=== PATIENT | female | born 1980 | race American Indian/Alaskan Native ===

== ENCOUNTER 2018-06-28 10:45 | Outpatient (CLI) | payer MEDICAID ==
--- NOTE | 2018-06-28 11:38 | XRay Report ---
LEFT KNEE RADIOGRAPHS INDICATION: Pain. COMPARISON: None similar. FINDINGS: AP and lateral left knee radiographs demonstrate intact bony articulation and appearance. Normal soft tissues without evidence of suprapatellar effusion. CONCLUSION: Normal left knee radiographs. Thank you for the opportunity to participate in this patient's care.
== END 2018-06-28 10:46 | disposition home or self-care (01) ==
LOC: XRAY 10:45
PROVIDERS: ATTEND Orthopaedic Surgery
DX: M25.562 Pain in left knee (principal)

== ENCOUNTER 2018-11-26 19:16 | Emergency (ER) | payer MEDICAID ==
--- NOTE | 2018-11-26 19:47 | Emergency Department Report ---
Blank Doc - Documentation Documentation: This is a 38-year-old female that presents with intermittent midsternum chest pain and worse when laying down. Denies any SOB. Denies any radiation of pain. Denies any other symptoms or complaints. PMH: HTN This initial assessment diagnostic orders/clinical plan/treatment(s) is/are subject to change based on patient's health status, clinical progression and re- assessment by fellow clinical providers in the ED. Further treatment and workup at subsequent clinical providers discretion. Patient/guardians urged not to elope from ED s their condition may be serious if not clinically assessed and managed. Initial orders include: 1-Patient sent to [facility] for further evaluation and treatment 2- Labs 3-EKG 4- CXR
[2018-11-26 20:03] LABS: Basophils # (Auto) 0.2 K/mm3 (0.0-0.1); Basophils % (Auto) 1.5 % (0.0-1.8); Eosinophils # (Auto) 0.1 K/mm3 (0.0-0.4); Eosinophils % (Auto) 0.9 % (0.0-4.3); Hematocrit 37.3 % (30.3-42.9); Hemoglobin 12.2 gm/dl (10.1-14.3); Lymphocytes # (Auto) 2.8 K/mm3 (1.2-5.4); Lymphocytes % (Auto) 24.8 % (13.4-35.0); Mean Corpuscular HGB Conc 33 % (30-34); Mean Corpuscular Volume 81 fl (79-97); Platelet Count 205 K/mm3 (140-440); Red Blood Count 4.63 M/mm3 (3.65-5.03)
[2018-11-26 20:33] LABS: BUN/Creatinine Ratio 16; Blood Urea Nitrogen 13 mg/dL (7-17); Calcium 9.6 mg/dL (8.4-10.2); Hemolysis Index 7
--- NOTE | 2018-11-26 21:51 | Emergency Department Report ---
Addendum entered and electronically signed by HAZEL WYATT PA 11/27/18 00:46: EKG dictated by attending physician shows sinus rhythm at [address] abnormalities. Original Note: ED Chest Pain HPI - General Chief Complaint: Chest Pain Stated Complaint: CHEST PAIN Time Seen by Provider: 11/26/18 19:45 Source: patient, family Mode of arrival: Ambulatory Limitations: No Limitations - History of Present Illness Initial Comments: This is a 38-year-old female here report that she is having left chest pain that feels like move in. But no radiation. She denies any cough or congestion. Denies any fever or chills. Denies any nausea or vomiting. Patient said she had pneumonia in the past. She denies any history of any heart problems, denies recent long distance travel or any convalescent period. Denies being on control. Her chest pain is localized to left chest. Pain is 3 out of 10 and sh shiva and worse with movement and no alleviating factor. She denies any shortness of breath. No medication taken prior to coming to the emergency room and she said this started a couple days ago. MD Complaint: chest pain Onset/Timin -: days(s) Onset: during rest Pain Location: left chest Pain Radiation: none Severity scale (0 -10): 3 Quality: sharp Consistency: constant Improves With: nothing Worsens With: movement Context: other (unknown) re: denies: nausea, vomting, diaphoresis, dyspnea, sense of impending doom Treatments Prior to Arrival: none Aspirin use within the Past 7 Days: (0) No - Related Data On Oral Contraceptives: No Previous Rx's Medication Instructions Recorded Last Taken Type Ibuprofen 400 mg PO QID 5 Days #20 tablet 08/26/18 Unknown Rx oxyCODONE /ACETAMINOPHEN [Percocet 1 tab PO Q6HR PRN #10 tablet 08/26/18 Unknown Rx 5/325] Ibuprofen [Motrin] 800 mg PO Q8HR PRN #12 tablet 11/27/18 Unknown Rx Allergies Allergy/AdvReac Type Severity Reaction Status Date / Time BAND AID Allergy Hives Uncoded 06/28/18 10:46 Heart Score - HEART Score History: Slightly suspicious EKG: Normal Age: < 45 Risk factors: 1-2 risk factors Troponin: < normal limit HEART Score: 1 - Critical Actions Critical Actions: 0-3 pts:0.9-1.7%risk of adverse cardiac event.Candidate for discharge ED Review of Systems ROS: Stated complaint: CHEST PAIN Other details as noted in HPI Constitutional: chills. denies: fever Eyes: denies: eye pain, eye discharge ENT: denies: throat pain, congestion Cardiovascular: chest pain. denies: palpitations, dyspnea on exertion, edema, syncope, paroxysmal nocturnal dyspnea Gastrointestinal: denies: abdominal pain, nausea, vomiting, diarrhea, constipation, hematemesis, hematochezia Genitourinary: denies: dysuria, hematuria Musculoskeletal: denies: back pain, joint swelling, arthralgia, myalgia Skin: denies: rash Neurological: denies: headache Psychiatric: denies: anxiety ED Past Medical Hx - Past Medical History Previous Medical History?: Yes Hx Hypertension: Yes Hx Asthma: Yes - Surgical History Past Surgical History?: Yes Hx Cholecystectomy: Yes - Family History Family history: hypertension - Social History Smoking Status: Current Every Day Smoker Substance Use Type: None - Medications Home Medications: Home Medications Medication Instructions Recorded Confirmed Last Taken Type Ibuprofen 400 mg PO QID 5 Days #20 tablet 08/26/18 Unknown Rx oxyCODONE /ACETAMINOPHEN [Percocet 1 tab PO Q6HR PRN #10 tablet 08/26/18 Unknown Rx 5/325] Ibuprofen [Motrin] 800 mg PO Q8HR PRN #12 tablet 11/27/18 Unknown Rx ED Physical Exam - General Limitations: No Limitations General appearance: alert, in no apparent distress - Head Head exam: Present: atraumatic, normocephalic, normal inspection - Eye Eye exam: Present: normal appearance, PERRL, EOMI Pupils: Present: normal accommodation - ENT ENT exam: Present: normal exam, normal orophraynx, mucous membranes moist, TM's normal bilaterally, normal external ear exam - Neck Neck exam: Present: normal inspection, full ROM. Absent: tenderness, lymphadenopathy - Respiratory Respiratory exam: Present: normal lung sounds bilaterally, chest wall tenderness (left chest wall.). Absent: respiratory distress, wheezes, rales, rhonchi, stridor, accessory muscle use, decreased breath sounds, prolonged expiratory - Cardiovascular Cardiovascular Exam: Present: regular rate, normal rhythm, normal heart sounds. Absent: systolic murmur, diastolic murmur - GI/Abdominal GI/Abdominal exam: Present: soft, normal bowel sounds. Absent: distended, tenderness, rigid, organomegaly, mass - Extremities Exam Extremities exam: Present: normal inspection, full ROM, normal capillary refill, other (No cce. + 2 pulses in all extremities, no neurovascular compromise). Absent: pedal edema, joint swelling, calf tenderness - Back Exam Back exam: Present: normal inspection, full ROM, other (ambulance without any difficulties). Absent: tenderness, CVA tenderness (R), CVA tenderness (L), mus rosemary spasm, paraspinal tenderness, vertebral tenderness, rash noted - Neurological Exam Neurological exam: Present: alert, oriented X3, normal gait, reflexes normal. Absent: motor sensory deficit - Psychiatric Psychiatric exam: Present: normal affect, normal mood - Skin Skin exam: Present: warm, dry, intact, normal color. Absent: rash ED Course Vital Signs 11/26/18 11/26/18 19:46 19:47 Temperature 98.4 F Pulse Rate 95 H Respiratory 14 18 Rate Blood Pressure 149/87 O2 Sat by Pulse 98 Oximetry - Reevaluation(s) Reevaluation #1: 11/27/18 00:35 Patient stable throughout ED course. She has no chest pain or any problems at present. Reevaluation #2: 11/27/18 00:43 Patient given Motrin prior to discharge it 100 mg to costochondritis. JOSELO score - Joselo Score Age > 65: (0) No Aspirin use within the Past 7 Days: (0) No 3 or more CAD Risk Factors: (0) No 2 or more Angina events in past 24 hrs: (0) No Known CAD with more than 50% Stenosis: (0) No Elevated Cardiac Markers: (0) No ST Deviation Greater than 0.5mm: (0) No JOSELO Score: 0 ED Medical Decision Making - Lab Data Result diagrams: 11/26/18 19:49 11/26/18 19:49 Lab Results 11/26/18 11/26/18 11/26/18 Range/Units 19:49 19:49 19:49 WBC 11.2 H (4.5-11.0) K/mm3 RBC 4.63 (3.65-5.03) M/mm3 Hgb 12.2 (10.1-14.3) gm/dl Hct 37.3 (30.3-42.9) % MCV 81 (79-97) fl MCH 27 L (28-32) pg MCHC 33 (30-34) % RDW 15.0 (13.2-15.2) % Plt Count 205 (140-440) K/mm3 Lymph % (Auto) 24.8 (13.4-35.0) % [place] % (Auto) 9.0 H (0.0-7.3) % Eos % (Auto) 0.9 (0.0-4.3) % Baso % (Auto) 1.5 (0.0-1.8) % Lymph # 2.8 (1.2-5.4) K/mm3 [place] # 1.0 H (0.0-0.8) K/mm3 Eos # 0.1 (0.0-0.4) K/mm3 Baso # 0.2 H (0.0-0.1) K/mm3 Seg Neutrophils % 63.8 (40.0-70.0) % Seg Neutrophils # 7.1 (1.8-7.7) K/mm3 D-Dimer (0-234) ng/mlDDU Sodium 137 (137-145) mmol/L Potassium 3.7 (3.6-5.0) mmol/L Chloride 101.5 (98-107) mmol/L Carbon Dioxide 21 L (22-30) mmol/L Anion Gap 18 mmol/L BUN 13 (7-17) mg/dL Creatinine 0.8 (0.7-1.2) mg/dL Estimated GFR > 60 ml/min BUN/Creatinine Ratio 16 % Glucose 95 (65-100) mg/dL Calcium 9.6 (8.4-10.2) mg/dL Troponin T < 0.010 (0.00-0.029) ng/mL HCG, Qual Negative (Negative) 11/26/18 11/26/18 Range/Units 22:05 22:44 WBC (4.5-11.0) K/mm3 RBC (3.65-5.03) M/mm3 Hgb (10.1-14.3) gm/dl Hct (30.3-42.9) % MCV (79-97) fl MCH (28-32) pg MCHC (30-34) % RDW (13.2-15.2) % Plt Count (140-440) K/mm3 Lymph % (Auto) (13.4-35.0) % [place] % (Auto) (0.0-7.3) % Eos % (Auto) (0.0-4.3) % Baso % (Auto) (0.0-1.8) % Lymph # (1.2-5.4) K/mm3 [place] # (0.0-0.8) K/mm3 Eos # (0.0-0.4) K/mm3 Baso # (0.0-0.1) K/mm3 Seg Neutrophils % (40.0-70.0) % Seg Neutrophils # (1.8-7.7) K/mm3 D-Dimer 239.42 H (0-234) ng/mlDDU Sodium (137-145) mmol/L Potassium (3.6-5.0) mmol/L Chloride (98-107) mmol/L Carbon Dioxide (22-30) mmol/L Anion Gap mmol/L BUN (7-17) mg/dL Creatinine (0.7-1.2) mg/dL Estimated GFR ml/min BUN/Creatinine Ratio % Glucose (65-100) mg/dL Calcium (8.4-10.2) mg/dL Troponin T < 0.010 (0.00-0.029) ng/mL HCG, Qual (Negative) - EKG Data -: EKG Interpreted by Me (attending physician) - Radiology Data Radiology results: report reviewed CT angiogram chest and chest x-ray 2 views dictated by radiologist and report reviewed by myself. See reports below Findings [facility] [address] [place] [address] XRay Report Signed Patient: DOMENIC GRUBBS MR#: [id number] : 1980 Acct:[id number] Age/Sex: 38 / F ADM Date: 11/26/18 Loc: ED Attending Dr: Ordering Physician: CHRISTY BERNSTEIN NP Date of Service: 11/26/18 Procedure(s): XR chest routine 2V Accession Number(s): [id number] cc: CHRISTY BERNSTEIN NP Fluoro Time In Minutes: FINAL REPORT EXAM: XR CHEST ROUTINE 2V HISTORY: Chest Pain TECHNIQUE: 2 views of the chest. PRIORS: None. FINDINGS: The cardiomediastinal silhouette appears normal. The lungs are clear. The bones and soft tissues are unremarkable. IMPRESSION: No evidence of acute cardiopulmonary disease Transcribed By: MLG Dictated By: ANDRES MEJÍA MD Electronically Authenticated By: ANDRES MEJÍA MD Signed Date/Time: 11/26/182203 DD/ 01 TD/TT: 11/26/182201 Findings [facility] [address] [id number] Cat Scan Report Signed Patient: DOMENIC GRUBBS MR#: [id number] : 1980 Acct:[id number] Age/Sex: 38 / F ADM Date: 11/26/18 Loc: ED Attending Dr: Ordering Physician: QASIM PERRIN Date of Service: 11/26/18 Procedure(s): CT angio chest Accession Number(s): [id number] cc: QASIM PERRIN FINAL REPORT PROCEDURE: CT ANGIO CHEST TECHNIQUE: Computerized axial tomographic angiography of the chest and pulmonary arteries was performed after the IV injection of iodinated nonionic contrast. The image data was postprocessed using maximum intensity projection (MIP) and 2-dimensional multiplanar reformatted (MPR) techniques. The examination is specifically tailored to the evaluation of the pulmonary arteries per clinical request. HISTORY: Short of breath 786.09, chest pain 786.50, left chest pain with elevated d-dimer COMPARISON: No prior studies are available for comparison. FINDINGS: Heart and pericardium: Normal. Thoracic aorta: There is no thoracic aortic aneurysm or dissection.. Pulmonary vasculature: Normal. No pulmonary emboli. Lymph nodes: No enlarged thoracic lymph nodes. Lungs: The lungs are clear and expanded. There are no infiltrates.. Pleural space: No effusion, thickening, or pneumothorax. Musculoskeletal structures: No significant abnormality. Upper abdominal structures: Images of the upper abdomen demonstrate a 12 millimeter enhancing lesion in the left lobe of the liver which could be an atypical hemangioma or adenoma.. IMPRESSION: There is no pulmonary embolism.. Transcribed By: CO Dictated By: DERECK BADILLO MD Electronically Authenticated By: DERECK BADILLO MD Signed Date/Time: 11/27/187 DD/ TD/TT: 11/27/185 - Medical Decision Making This is a 38-year-old female here reports she is having chest pain. Patient has a history of high blood pressure and she smokes. She had lab work done to include troponins 2 which are negative. EKG shows sinus rhythm at 85 bpm. Patient vital signs are stable she is afebrile. She said this is been ongoing 2 days and she had pneumonia in the past that she is just worried. Her CBC and BMP normal. Troponin 2 is negative. D-dimer elevated and patient had CTA chest which shows no pulmonary embolism but she has small lesion on her liver which looks like a hemangioma. She had a chest x-ray 2 views done and this shows no acute cardiopulmonary processes. I explained to patient and her lab results and her CT scan and x-ray results. She voiced understanding. Patient said that she has GI doctor that was actually monitored her gallbladder before she had it removed and he is in [place]. She says she has a history of constipation and they are probably innermost part of her colon in the future. She did not know about the liver lesion but I told her that she needs to have follow-up with GI doctor for monitoring and she voiced understanding. Patient d ischarged home in stable condition and she is t pain-free. I discussed with her based on palpation of her chest with reproducible pain she has costochondritis and also to her home on Motrin and she voiced understanding. Discharged home in stable condition with prescription for Motrin - Differential Diagnosis PE, PNA, bronchitis, malignancy, atypical chest pain, costochondritis Critical care attestation.: If time is entered above; I have spent that time in minutes in the direct care of this critically ill patient, excluding procedure time. ED Disposition Clinical Impression: Acute costochondritis, Liver lesion, Atypical chest pain Disposition: DC-01 TO HOME OR SELFCARE Is pt being admited?: No Does the pt Need Aspirin: No Condition: Stable Instructions: Chest Pain (ED), Costochondritis (ED) Additional Instructions: Please follow-up with your formula bottler regarding liver lesion. Follow-up for your primary care physician and to 3 days. I would also like him to follow up with a aircraft structure mechanic for echocardiogram to make sure that your heart valves are functioning at a normal level. Take Motrin as prescribed for pain. If his symptoms return and aurora are worst, please return to emergency room FANY Stop smoking Referrals: PRIMARY CARE, [Primary Care Provider] - 2-3 Days [facility] [Provider Group] - 2-3 Days DONELL GALEAS MD [Staff Physician] - 2-3 Days Forms: Accompanied Note, Work/School Release Form(ED)
--- NOTE | 2018-11-26 22:04 | XRay Report ---
FINAL REPORT EXAM: XR CHEST ROUTINE 2V HISTORY: Chest Pain TECHNIQUE: 2 views of the chest. PRIORS: None. FINDINGS: The cardiomediastinal silhouette appears normal. The lungs are clear. The bones and soft tissues are unremarkable. IMPRESSION: No evidence of acute cardiopulmonary disease
--- NOTE | 2018-11-27 00:08 | Cat Scan Report ---
FINAL REPORT PROCEDURE: CT ANGIO CHEST TECHNIQUE: Computerized axial tomographic angiography of the chest and pulmonary arteries was perfor med after the IV injection of iodinated nonionic contrast. The image data was postprocessed using max imum intensity projection (MIP) and 2-dimensional multiplanar reformatted (MPR) techniques. The exami nation is specifically tailored to the evaluation of the pulmonary arteries per clinical request. HISTORY: Short of breath 786.09, chest pain 786.50, left chest pain with elevated d-dimer COMPARISON: No prior studies are available for comparison. FINDINGS: Heart and pericardium: Normal. Thoracic aorta: There is no thoracic aortic aneurysm or dissection.. Pulmonary vasculature: Normal. No pulmonary emboli. Lymph nodes: No enlarged thoracic lymph nodes. Lungs: The lungs are clear and expanded. There are no infiltrates.. Pleural space: No effusion, thickening, or pneumothorax. Musculoskeletal structures: No significant abnormality. Upper abdominal structures: Images of the upper abdomen demonstrate a 12 millimeter enhancing lesion in the left lobe of the liver which could be an atypical hemangioma or adenoma.. IMPRESSION: There is no pulmonary embolism..
[2018-11-27] MEDS ORDERED: IBUPROFEN PO ONE (00:43)
[2018-11-27 01:02] VITALS: BP 146/96
== END 2018-11-27 01:02 | disposition home or self-care (01) ==
LOC: ED 19:16
DX: M94.0 Chondrocostal junction syndrome [Tietze] (principal); I10 Essential (primary) hypertension; K76.9 Liver disease, unspecified; J45.909 Unspecified asthma, uncomplicated; F17.200 Nicotine dependence, unspecified, uncomplicated; Z90.49 Acquired absence of other specified parts of digestive tract; Z91.09 Other allergy status, other than to drugs and biological substances
CPT/HCPCS: 36415; 71046; 71275; 80048; 84484; 84703; 85025; 85379; 93005; 93010; 99284; Q9967

== ENCOUNTER 2019-01-24 07:19 | Emergency (ER) | payer MEDICAID ==
[2019-01-24 07:24] VITALS: BP 128/86
--- NOTE | 2019-01-24 08:38 | Emergency Department Report ---
ED Lower Extremity HPI - General Chief Complaint: Extremity Injury, Lower Stated Complaint: RT LEG PAIN Time Seen by Provider: 01/24/19 08:16 Source: patient Mode of arrival: Ambulatory Limitations: No Limitations - History of Present Illness Initial Comments: Ms. Calderon is a 38 yo female who hurt her right hip while walking down stairs recently. Severe pain from hip radiating to right knee. Has hx of back pain followed by her PCP and orthopedic surgeon. Home medications: Ibuprofen and tramadol did not provide any relief MD Complaint: hip injury -: Sudden Injury: Hip: Right Type of Injury: inversion, eversion Severity: severe Worsens With: weight bearing Associated Symptoms: snap/pop sensation - Related Data Previous Rx's Medication Instructions Recorded Last Taken Type Ibuprofen 400 mg PO QID 5 Days #20 tablet 08/26/18 Unknown Rx oxyCODONE /ACETAMINOPHEN [Percocet 1 tab PO Q6HR PRN #10 tablet 08/26/18 Unknown Rx 5/325] Ibuprofen [Motrin] 800 mg PO Q8HR PRN #12 tablet 11/27/18 Unknown Rx Prednisone [predniSONE 10 mg 10 mg PO .TAPER #1 tab.ds.pk 01/24/19 Unknown Rx (6-Day Pack, 21 Tabs)] Allergies Allergy/AdvReac Type Severity Reaction Status Date / Time BAND AID Allergy Hives Uncoded 06/28/18 10:46 ED Review of Systems ROS: Stated complaint: RT LEG PAIN Other details as noted in HPI Constitutional: denies: fever, malaise Musculoskeletal: arthralgia. denies: back pain Neurological: denies: numbness, paresthesias ED Past Medical Hx - Past Medical History Previous Medical History?: Yes Hx Hypertension: Yes Hx Asthma: Yes - Surgical History Past Surgical History?: Yes Hx Cholecystectomy: Yes - Social History Smoking Status: Current Every Day Smoker - Medications Home Medications: Home Medications Medication Instructions Recorded Confirmed Last Taken Type Ibuprofen 400 mg PO QID 5 Days #20 tablet 08/26/18 Unknown Rx oxyCODONE /ACETAMINOPHEN [Percocet 1 tab PO Q6HR PRN #10 tablet 08/26/18 Unknown Rx 5/325] Ibuprofen [Motrin] 800 mg PO Q8HR PRN #12 tablet 11/27/18 Unknown Rx Prednisone [predniSONE 10 mg 10 mg PO .TAPER #1 tab.ds.pk 01/24/19 Unknown Rx (6-Day Pack, 21 Tabs)] ED Physical Exam - General Limitations: No Limitations General appearance: alert, in no apparent distress - Head Head exam: Present: atraumatic, normocephalic - Eye Eye exam: Present: normal appearance - Respiratory Respiratory exam: Absent: respiratory distress - Expanded Lower Extremity Exam Right Hip exam: Present: normal inspection, full ROM. Absent: tenderness, swelling, laceration, ecchymosis, deformity, crepidus, dislocation, erythema, external rotation, internal rotation, shortening, pelvic stability Upper Leg exam: Present: normal inspection, full ROM. Absent: tenderness, swelling Knee exam: Present: normal inspection. Absent: full ROM, tenderness, swelling, abrasion Lower Leg exam: Present: normal inspection, full ROM Ankle exam: Present: normal inspection, full ROM Foot/Toe exam: Present: normal inspection, full ROM Neuro vascular tendon exam: Present: no vascular compromise ED Course Vital Signs 01/24/19 07:23 Temperature 98.5 F Pulse Rate 90 Respiratory 18 Rate Blood Pressure 128/86 O2 Sat by Pulse 99 Oximetry ED Lower Extremity MDM - Radiology Data Radiology results: report reviewed, image reviewed Right hip radiograph upon my review, my impression no dislocation no fracture Differential diagnoses of right hip pain: Sciatica, hip sprain, bursitis Prescribed prednisone, referred to our orthopedic surgeon. She has appt next week with her personal orthopedic surgeon. Critical care attestation.: If time is entered above; I have spent that time in minutes in the direct care of this critically ill patient, excluding procedure time. ED Disposition Clinical Impression: Injury of right hip Disposition: - TO HOME OR SELFCARE Is pt being admited?: No Does the pt Need Aspirin: No Condition: Stable Instructions: Hip Sprain (ED) Prescriptions: Prednisone [predniSONE 10 mg (6-Day Pack, 21 Tabs)] 10 mg PO .TAPER #1 tab.ds.pk Referrals: ANA BRADSHAW MD [Staff Physician] - 3-5 Days
[2019-01-24] MEDS ORDERED: PERCOCET 5/325 PO ONE (08:55)
--- NOTE | 2019-01-24 09:20 | XRay Report ---
RIGHT HIP, 2 views: History: Right hip pain. The bony architecture is intact without evidence of fracture or dislocation. No significant soft tissue abnormality is seen. A right L5 hemitransitional vertebra is noted. IMPRESSION: Normal right hip.
== END 2019-01-24 09:36 | disposition home or self-care (01) ==
LOC: ED 07:19
DX: S79.811A Other specified injuries of right hip, initial encounter (principal); F17.200 Nicotine dependence, unspecified, uncomplicated; J45.909 Unspecified asthma, uncomplicated; Z90.49 Acquired absence of other specified parts of digestive tract; Z91.09 Other allergy status, other than to drugs and biological substances; X58.XXXA Exposure to other specified factors, initial encounter; Y93.01 Activity, walking, marching and hiking; Y92.89 Other specified places as the place of occurrence of the external cause; Y99.8 Other external cause status; I10 Essential (primary) hypertension
CPT/HCPCS: 99283

== ENCOUNTER 2019-11-21 12:53 | Emergency (ER) | payer MEDICAID ==
--- NOTE | 2019-11-21 13:48 | Emergency Department Report ---
Blank Doc - Documentation Documentation: 39-year-old female that presents with cough and chest congestion. This initial assessment/diagnostic orders/clinical plan/treatment(s) is/are subject to change based on patient's health status, clinical progression and re- assessment by fellow clinical providers in the ED. Further treatment and workup at subsequent clinical providers discretion. Patient/guardians urged not to elope from the ED as their condition may be serious if not clinically assessed and managed. Initial orders include: 1- Patient sent to [facility] for further evaluation and treatment 2- CXR
[2019-11-21 13:50] VITALS: BP 157/105
[2019-11-21 15:30] LABS: Basophils # (Auto) 0.1 K/mm3 (0.0-0.1); Basophils % (Auto) 0.6 % (0.0-1.8); Eosinophils # (Auto) 0.1 K/mm3 (0.0-0.4); Eosinophils % (Auto) 1.2 % (0.0-4.3); Hematocrit 35.1 % (30.3-42.9); Hemoglobin 11.4 gm/dl (10.1-14.3); Lymphocytes # (Auto) 3.1 K/mm3 (1.2-5.4); Lymphocytes % (Auto) 27.1 % (13.4-35.0); Mean Corpuscular HGB Conc 32 % (30-34); Mean Corpuscular Volume 78 fl (79-97); Monocytes # (Auto) 1.2 K/mm3 (0.0-0.8); Monocytes % (Auto) 10.1 % (0.0-7.3); Platelet Count 229 K/mm3 (140-440); Red Blood Count 4.51 M/mm3 (3.65-5.03); Red Cell Distribution Width 17.3 % (13.2-15.2)
[2019-11-21 15:55] LABS: Alanine Aminotransferase 16 units/L (7-56); Albumin 4.5 g/dL (3.9-5); BUN/Creatinine Ratio 16; Blood Urea Nitrogen 11 mg/dL (7-17); Calcium 9.2 mg/dL (8.4-10.2); Hemolysis Index 9
--- NOTE | 2019-11-21 16:12 | XRay Report ---
CHEST 2 VIEWS INDICATION: cough. COMPARISON: 11/26/2018 FINDINGS: Support devices: None. Heart: Within normal limits. Lungs: No acute air space or interstitial disease. Pleura: No significant pleural effusion. No pneumothorax. Additional findings: None. IMPRESSION: 1. No acute findings. Signer Name: Mac Perez MD Signed: 11/21/2019 4:07 PM Workstation Name: [id number]
[2019-11-21] MEDS ORDERED: IBUPROFEN 800 MG TAB PO ONE (19:30)
[2019-11-21] MEDS ORDERED: ALBUTEROL 2.5 MG/3 ML NEBU IH ONE (19:30)
[2019-11-21] MEDS ORDERED: predniSONE 20 MG TAB PO ONE (19:30)
--- NOTE | 2019-11-21 20:13 | Emergency Department Report ---
ED Chest Pain HPI - General Chief Complaint: Upper Respiratory Infection Stated Complaint: CHEST TIGHTNESS/WEAKNESS Time Seen by Provider: 11/21/19 13:47 Source: patient Mode of arrival: Ambulatory Limitations: No Limitations - History of Present Illness Initial Comments: Ms. Grubbs is a 39-year-old -[place] Citizen female who reports for chest pain and SOB now. Seen by PCP today started on nitroglycerin as needed and sent to ED for eval of chest pain. Patient has history of asthma and hypertension. States chest pain is left lateral and sometimes substernal 5/10 and at times exacerbated by cough and movement. Pain is relieved by nothing tried. Patient states intermittent shortness of breath however no shortness of breath at this time no wheezing at this time. States she does have wheezing at night at hour sleep and when lying down. There is no edema or swelling. MD Complaint: chest pain Onset/Timin -: week(s) Onset: during rest, during exertion Pain Location: substernal, left chest Pain Radiation: none Severity: moderate Severity scale (0 -10): 8 Quality: sharp Consistency: intermittent Improves With: nothing Worsens With: exertion, inspiration, movement re: denies: nausea, vomting, diaphoresis, dyspnea, sense of impending doom Other Symptoms: cough. denies: fever, syncope, acid taste in mouth, leg swelling, palpitations, burping Treatments Prior to Arrival: none - Related Data On Oral Contraceptives: No Previous Rx's Medication Instructions Recorded Last Taken Type Ibuprofen 400 mg PO QID 5 Days #20 tablet 08/26/18 Unknown Rx oxyCODONE /ACETAMINOPHEN [Percocet 1 tab PO Q6HR PRN #10 tablet 08/26/18 Unknown Rx 5/325] Ibuprofen [Motrin] 800 mg PO Q8HR PRN #12 tablet 11/27/18 Unknown Rx Prednisone [predniSONE 10 mg 10 mg PO .TAPER #1 tab.ds.pk 01/24/19 Unknown Rx (6-Day Pack, 21 Tabs)] Albuterol INH(or & Nicu Only) 2 puff IH QID PRN #8.5 gram 11/21/19 Unknown Rx [ProAir HFA Inhaler] Azithromycin [Zithromax Z-DEVIKA] 250 mg PO DAILY #6 tab 11/21/19 Unknown Rx Naproxen 500 mg PO BID PRN #30 tablet 11/21/19 Unknown Rx guaiFENesin/CODEINE [Robitussin AC] 5 ml PO TID PRN #120 ml 11/21/19 Unknown Rx predniSONE [Deltasone] 40 mg PO QDAY 5 Days #10 tab 11/21/19 Unknown Rx Allergies Allergy/AdvReac Type Severity Reaction Status Date / Time BAND AID Allergy Hives Uncoded 06/28/18 10:46 Heart Score - HEART Score History: Slightly suspicious EKG: Normal Age: < 45 Risk factors: 1-2 risk factors Troponin: < normal limit HEART Score: 1 ED Review of Systems ROS: Stated complaint: CHEST TIGHTNESS/WEAKNESS Other details as noted in HPI Constitutional: denies: chills, fever Eyes: denies: eye pain, eye discharge, vision change ENT: denies: ear pain, throat pain Respiratory: cough, shortness of breath, wheezing Cardiovascular: chest pain Endocrine: no symptoms reported Gastrointestinal: denies: abdominal pain, nausea, vomiting, diarrhea Genitourinary: denies: urgency, dysuria, discharge Musculoskeletal: denies: back pain, joint swelling, arthralgia Skin: denies: rash, lesions Neurological: denies: headache, weakness, paresthesias, vertigo Psychiatric: denies: anxiety, depression Hematological/Lymphatic: denies: easy bleeding, easy bruising ED Past Medical Hx - Past Medical History Previous Medical History?: Yes Hx Hypertension: Yes Hx Asthma: Yes - Surgical History Past Surgical History?: Yes Hx Cholecystectomy: Yes - Social History Smoking Status: Current Every Day Smoker Substance Use Type: Alcohol - Medications Home Medications: Home Medications Medication Instructions Recorded Confirmed Last Taken Type Ibuprofen 400 mg PO QID 5 Days #20 tablet 08/26/18 Unknown Rx oxyCODONE /ACETAMINOPHEN [Percocet 1 tab PO Q6HR PRN #10 tablet 08/26/18 Unknown Rx 5/325] Ibuprofen [Motrin] 800 mg PO Q8HR PRN #12 tablet 11/27/18 Unknown Rx Prednisone [predniSONE 10 mg 10 mg PO .TAPER #1 tab.ds.pk 01/24/19 Unknown Rx (6-Day Pack, 21 Tabs)] Albuterol INH(or & Nicu Only) 2 puff IH QID PRN #8.5 gram 11/21/19 Unknown Rx [ProAir HFA Inhaler] Azithromycin [Zithromax Z-DEVIKA] 250 mg PO DAILY #6 tab 11/21/19 Unknown Rx Naproxen 500 mg PO BID PRN #30 tablet 11/21/19 Unknown Rx guaiFENesin/CODEINE [Robitussin AC] 5 ml PO TID PRN #120 ml 11/21/19 Unknown Rx predniSONE [Deltasone] 40 mg PO QDAY 5 Days #10 tab 11/21/19 Unknown Rx ED Physical Exam - General Limitations: No Limitations General appearance: alert, in no apparent distress - Head Head exam: Present: atraumatic, normocephalic - Eye Eye exam: Present: normal appearance, PERRL, EOMI - ENT ENT exam: Present: normal orophraynx, mucous membranes moist - Neck Neck exam: Present: normal inspection, full ROM. Absent: tenderness, lymphadenopathy, thyromegaly - Respiratory Respiratory exam: Present: normal lung sounds bilaterally, chest wall tenderness (left lateral , no crepitus , no swelling , pain is reproducible ). Absent: respiratory distress, wheezes, rales, rhonchi, stridor, accessory muscle use, prolonged expiratory - Cardiovascular Cardiovascular Exam: Present: regular rate, normal rhythm, normal heart sounds. Absent: systolic murmur, diastolic murmur, rubs, gallop - GI/Abdominal GI/Abdominal exam: Present: soft, normal bowel sounds. Absent: distended, tenderness, guarding, rebound, rigid, bruit, hernia - Rectal Rectal exam: Present: deferred - Extremities Exam Extremities exam: Present: normal inspection, full ROM, normal capillary refill. Absent: tenderness, pedal edema, calf tenderness - Back Exam Back exam: Present: normal inspection, full ROM. Absent: tenderness, CVA tenderness (R), CVA tenderness (L), vertebral tenderness - Neurological Exam Neurological exam: Present: alert, oriented X3, CN II-XII intact, normal gait - Psychiatric Psychiatric exam: Present: normal affect, normal mood - Skin Skin exam: Present: warm, dry, intact, normal color. Absent: rash ED Course Vital Signs 11/21/19 11/21/19 13:46 19:55 Temperature 98.2 F Pulse Rate 99 H Respiratory 18 18 Rate Blood Pressure 157/105 O2 Sat by Pulse 100 Oximetry JOSELO score - Joselo Score Age > 65: (0) No Aspirin use within the Past 7 Days: (0) No 3 or more CAD Risk Factors: (0) No 2 or more Angina events in past 24 hrs: (0) No Known CAD with more than 50% Stenosis: (0) No Elevated Cardiac Markers: (0) No ST Deviation Greater than 0.5mm: (0) No JOSELO Score: 0 ED Medical Decision Making - Lab Data Result diagrams: 11/21/19 14:58 11/21/19 14:58 Labs 11/21/19 11/21/19 11/21/19 14:58 14:58 14:58 WBC 11.6 H RBC 4.51 Hgb 11.4 Hct 35.1 MCV 78 L MCH 25 L MCHC 32 RDW 17.3 H Plt Count 229 Lymph % (Auto) 27.1 [place] % (Auto) 10.1 H Eos % (Auto) 1.2 Baso % (Auto) 0.6 Lymph # 3.1 [place] # 1.2 H Eos # 0.1 Baso # 0.1 Seg Neutrophils % 61.0 Seg Neutrophils # 7.1 Sodium 136 L Potassium 4.0 Chloride 99.3 Carbon Dioxide 21 L Anion Gap 20 BUN 11 Creatinine 0.7 Estimated GFR > 60 BUN/Creatinine Ratio 16 Glucose 86 Calcium 9.2 Total Bilirubin 0.20 AST 17 ALT 16 Alkaline Phosphatase 86 Troponin T < 0.010 Total Protein 8.0 Albumin 4.5 Albumin/Globulin Ratio 1.3 HCG, Qual Negative - EKG Data EKG shows normal: sinus rhythm, axis, intervals, QRS complexes, ST-T waves Rate: normal - EKG Data When compared to previous EKG there are: previous EKG unavailable Interpretation: normal EKG (ekg interp by ed attending, NSR, NO STEMI ) - Radiology Data Radiology results: report reviewed, image reviewed Findings [facility] [address] [place] [address] XRay Report Signed Patient: DOMENIC GRUBBS MR#: [id number] : 1980 Acct:[id number] Age/Sex: 39 / F ADM Date: 11/21/19 Loc: ED Attending Dr: Ordering Physician: CHRISTY BERNSTEIN NP Date of Service: 11/21/19 Procedure(s): XR chest routine 2V Accession Number(s): [id number] cc: CHRISTY BERNSTEIN NP Fluoro Time In Minutes: CHEST 2 VIEWS INDICATION: cough. COMPARISON: 11/26/2018 FINDINGS: Support devices: None. Heart: Within normal limits. Lungs: No acute air space or interstitial disease. Pleura: No significant pleural effusion. No pneumothorax. Additional findings: None. IMPRESSION: 1. No acute findings. Signer Name: Mac Perez MD Signed: 11/21/2019 4:07 PM Workstation Name: [id number] Transcribed By: WG Dictated By: Mac Perez MD Electronically Authenticated By: Mac Perez MD Signed Date/Time: 11/21/191606 DD/ 05 TD/TT: - Medical Decision Making Heart score is 1 for hypertension, JOSELO score is 0, chest x-ray is normal no infiltrates no opacities, EKG: NSR no ST Elevated SD, cardiac enzymes are negative less than 0.01, pain is improved with medications given in ED. patient has primary care provider working on this case. She has follow-up with cardiology in 2 to 3 days. patient has no fever or chills . This is likely chest wall pain due to cough . Plan NSAIDs as needed chest wall , Tussinex prn cough, follow up with her doctor in am. Critical care attestation.: If time is entered above; I have spent that time in minutes in the direct care of this critically ill patient, excluding procedure time. ED Disposition Clinical Impression: Chest pain Qualifiers: Chest pain type: unspecified Qualified Code(s): R07.9 - Chest pain, unspecified Asthma Qualifiers: Asthma severity: mild Asthma persistence: intermittent Asthma complication type: uncomplicated Qualified Code(s): J45.20 - Mild intermittent asthma, uncomplicated Disposition: - TO HOME OR SELFCARE Is pt being admited?: No Does the pt Need Aspirin: No Condition: Stable Instructions: Chest Pain (ED), Asthma (ED) Prescriptions: predniSONE [Deltasone] 40 mg PO QDAY 5 Days #10 tab Naproxen 500 mg PO BID PRN #30 tablet PRN Reason: pain Albuterol INH(or & Nicu Only) [ProAir HFA Inhaler] 2 puff IH QID PRN #8.5 gram PRN Reason: Shortness Of Breath guaiFENesin/CODEINE [Robitussin AC] 5 ml PO TID PRN #120 ml PRN Reason: Cough Azithromycin [Zithromax Z-DEVIKA] 250 mg PO DAILY #6 tab Referrals: FAMILY ,MEDICAL [Other] - 3-5 Days Forms: AMA Form Time of Disposition: 20:23
== END 2019-11-21 20:41 | disposition home or self-care (01) ==
LOC: ED 12:53
DX: J45.20 Mild intermittent asthma, uncomplicated (principal); I10 Essential (primary) hypertension; J45.909 Unspecified asthma, uncomplicated; F17.200 Nicotine dependence, unspecified, uncomplicated; Z90.49 Acquired absence of other specified parts of digestive tract; Z91.09 Other allergy status, other than to drugs and biological substances; Z79.899 Other long term (current) drug therapy
CPT/HCPCS: 36415; 71046; 80053; 84484; 84703; 85025; 93005; 93010; 94640; 99284; J7512; 94644

== ENCOUNTER 2020-09-01 14:17 | Emergency (ER) | payer MEDICAID | END 2020-09-01 16:45 | disposition left against medical advice (07) | LOC: ED 14:17 | DX: R58 Hemorrhage, not elsewhere classified (principal); Z53.21 Procedure and treatment not carried out due to patient leaving prior to being seen by health care provider ==